=== PATIENT | male | born 1970 | race African-American/Black ===

== ENCOUNTER 2020-12-09 08:44 | Outpatient (REF) | payer BC, SELFPAY | END 2020-12-09 08:45 | disposition home or self-care (01) | LOC: HO.LAB 08:44 | PROVIDERS: Visit Provider Internal Medicine | DX: Z20.822 Contact with and (suspected) exposure to COVID-19 (principal) | CPT/HCPCS: 36415; C9803; U0003; U0005 ==

== ENCOUNTER 2023-02-19 19:03 | Emergency (ER) | payer BC, SELFPAY | END 2023-02-19 20:53 | disposition left against medical advice (07) | LOC: HO.ED 20:50 | PROVIDERS: Emergency Provider Emergency Medicine | DX: S09.90XA Unspecified injury of head, initial encounter (principal); X58.XXXA Exposure to other specified factors, initial encounter; Y93.9 Activity, unspecified; Y92.9 Unspecified place or not applicable; Y99.9 Unspecified external cause status ==